=== PATIENT | male | born 1940 | race Caucasian/White ===

== ENCOUNTER 2019-04-30 19:24 | Inpatient (IN) | payer MEDICARE ==
[~2019-04-30] VITALS: Ht 172.7 cm; Wt 86.4 kg
[2019-04-30] MEDS ORDERED: IV NORMAL SALINE 1000 ML BAG IV ONE (19:45)
[2019-04-30 19:47] LABS: *BILIRUBIN,URIN 1+ (NEGATIVE); *BLOOD, URINE 2+ (NEGATIVE); *COLOR,URINE DARK YELLOW (YELLOW); *KETONES,URINE NEGATIVE (NEGATIVE); *UROBILINOGEN,URINE 0.2 E.U./dl (NORMAL); LEUKOCYTE ESTERASE ,URINE NEGATIVE (NEGATIVE); NITRITE, URINE NEGATIVE (NEGATIVE); PH,URINE 5.5 (5.0-8.0); UGLUCOSE NEGATIVE (NEGATIVE)
[2019-04-30 19:51] LABS: BASOPHILS # (AUTO) 0.1 K/uL (0.0-8.0); BASOPHILS % (AUTO) 0.6 % (0.0-2.0); EOSINOPHILS % (AUTO) 0.1 % (0.0-7.0); HEMATOCRIT 46.3 % (36.7-47.1); HEMOGLOBIN 15.5 g/dL (12.5-16.3); LYMPHOCYTES # (AUTO) 1.2 K/uL (20.0-40.0); LYMPHOCYTES % (AUTO) 6.4 % (20.5-51.5); MEAN CORPUSCULAR HEMOGLOBIN 30.9 uug (23.8-33.4); MEAN CORPUSCULAR HGB CONC 33 g/dL (32.5-36.3); MEAN CORPUSCULAR VOLUME 92.3 fL (73.0-96.2); MONOCYTES # (AUTO) 1.8 K/uL (2.0-10.0); MONOCYTES % (AUTO) 9.7 % (0.0-11.0); NEUTROPHILS # (AUTO) 15.8 K/uL (1.8-8.9); NEUTROPHILS % (AUTO) 83.2 % (38.5-71.5); PLATELET COUNT (AUTO) 177 K/uL (152-348); RED BLOOD CELL COUNT(AUTO) 5.02 MIL/uL (4.06-5.63)
[2019-04-30 19:59] LABS: CARBON DIOXIDE 26 mmol/L (21-32); CHLORIDE 101 mmol/L (98-107); CREATININE 1.5 mg/dL (0.6-1.3); GLUCOSE 209 mg/dL (74-106); POTASSIUM 3.4 mmol/L (3.5-5.1); UREA NITROGEN, BLOOD 24 mg/dL (7-18)
[2019-04-30 20:00] LABS: *CLARITY,URINE SLIGHTLY HAZY (CLEAR)
[2019-04-30 20:03] LABS: BACTERIA,URINE FEW /HPF (NONE SEEN); COARSE GRANULAR CASTS,URINE 0-3 /LPF; MUCUS,URINE MANY /LPF (0-FEW); SQUAMOUS EPITHELIAL CELL,UR FEW /HPF (NONE SEEN)
[2019-04-30 20:05] LABS: ALANINE AMINOTRANSFERASE 31 U/L (16-63); ALKALINE PHOSPHATASE 89 U/L (50-136); ASPARTATE AMINOTRANSFERASE 23 U/L (15-37); BILIRUBIN,DIRECT 0.2 mg/dL (0.0-0.2); BILIRUBIN,TOTAL 0.7 mg/dL (0.2-1.0); LIPASE 52 U/L (73-393); TOTAL PROTEIN, SERUM 7.2 g/dL (6.4-8.2)
[2019-04-30] MEDS ORDERED: ASPI-605 PO (20:16)
--- NOTE | 2019-04-30 20:18 | NUR ---
Jazmín ralph in [facility] - 04/30/19 at 2111 by [id number] PATIENT AND FAMILY UNAREA NAME AND DOSAGE OF MEDICATION TAKING AT HOME
--- NOTE | 2019-04-30 20:18 | NUR ---
PATIENT AND FAMILY UNABLE TO RECALL NAME AND DOSAGE OF MEDICATION TAKING AT HOME AT THIS TIME
[2019-04-30] MEDS ORDERED: DILTIAZEM HCL 25 MG IV ONE (20:23)
[2019-04-30] MEDS ORDERED: DILTIAZEM HCL 25 MG IV IV ONE (20:30)
--- NOTE | 2019-04-30 20:35 | NUR ---
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 PER FAMILY PATIENT IS NONCOMPLIANT WITH MEDICATION
--- NOTE | 2019-04-30 20:36 | NUR ---
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
[2019-04-30] MEDS ORDERED: ASPIRIN 81 MG TAB.CHEW ONE (21:01)
[2019-04-30] MEDS ORDERED: MAGNESIUM HYDROXIDE 30 ML LIQUID UDC PO PRN (21:15)
[2019-04-30] MEDS ORDERED: HYDROCODONE/APAP 5-325MG TABLET PO PRN (21:15)
[2019-04-30] MEDS ORDERED: MORPHINE SULFATE 2 MG/1 ML DISP.SYRIN IV PRN (21:15)
[2019-04-30] MEDS ORDERED: ASPIRIN 325 MG TABLET PO ONE (21:15)
[2019-04-30] MEDS ORDERED: ENOXAPARIN SODIUM 30 MG/0.3 ML DISP.SYRIN SQ SCH (21:15)
[2019-04-30] MEDS ORDERED: ACETAMINOPHEN 325 MG TABLET PO PRN (21:15)
[2019-04-30] MEDS ORDERED: ONDANSETRON 4 MG/2 ML VIAL IV PRN (21:15)
[2019-04-30] MEDS ORDERED: TEMAZEPAM 15 MG CAPSULE PO PRN (21:15)
[2019-04-30] MEDS ORDERED: CLONIDINE HCL 0.1 MG TABLET PO PRN (21:15)
--- NOTE | 2019-04-30 21:18 | NUR ---
TRANSFERED TO 3RD FLOOR TELE VIA [facility]
[2019-04-30 21:25] LABS: *AMPHETAMINE, URINE POSITIVE (NEGATIVE); *BARBITURATE, URINE NEGATIVE (NEGATIVE); *CANNABINOID, URINE NEGATIVE (NEGATIVE); *COCCAINE, URINE POSITIVE (NEGATIVE); *OPIATE, URINE NEGATIVE (NEGATIVE); *PHENCYCLIDINE SCREEN,URINE NEGATIVE (NEGATIVE)
[2019-04-30 21:33] VITALS: BP 92/42
[2019-04-30] MEDS ORDERED: ENOXAPARIN SODIUM 40 MG/0.4 ML DISP.SYRIN SQ SCH (22:00)
--- NOTE | 2019-04-30 22:00 | NUR ---
Received patient from ER. Dx: New onset A-fib/ generalized weakness. Patient is A/Ox4. No signs of acute distress noted. No complaints of pain or SOB. IV on the right AC is intact and patent. Patient walked to restroom with a weak, unsteady gait. Informed patient to not get up for now, provided urinal. Safety measures initiated. Bed is low and locked, call light within reach. Will continue to monitor.
[2019-04-30] MEDS: IV NS 1000 ML 1,000 ML IV PRN (22:05)
[2019-05-01] VITALS: BP 101/49
[2019-05-01 04:00] VITALS: BP 112/51
--- NOTE | 2019-05-01 06:07 | NUR ---
Patient slept well throughout night. No signs of acute distress noted. No complaints of pain or SOB. Patient stated that he still feels weak. heart rhythm in the TELE monitor converted to sinus rhythm around 5:18AM. Ordered EKG. IVF running on the right forearm. Safety measures given. Will endorse to next shift.
[2019-05-01 06:41] LABS: BASOPHILS # (AUTO) 0.1 K/uL (0.0-8.0); BASOPHILS % (AUTO) 0.4 % (0.0-2.0); EOSINOPHILS % (AUTO) 0.1 % (0.0-7.0); HEMATOCRIT 41.3 % (36.7-47.1); HEMOGLOBIN 13.7 g/dL (12.5-16.3); LYMPHOCYTES # (AUTO) 1.6 K/uL (20.0-40.0); LYMPHOCYTES % (AUTO) 9.9 % (20.5-51.5); MEAN CORPUSCULAR HGB CONC 33 g/dL (32.5-36.3); MEAN CORPUSCULAR VOLUME 93.2 fL (73.0-96.2); MONOCYTES # (AUTO) 1.7 K/uL (2.0-10.0); NEUTROPHILS # (AUTO) 12.5 K/uL (1.8-8.9); NEUTROPHILS % (AUTO) 78.6 % (38.5-71.5); PLATELET COUNT (AUTO) 153 K/uL (152-348); RED BLOOD CELL COUNT(AUTO) 4.43 MIL/uL (4.06-5.63); WHITE BLOOD COUNT (AUTO) 15.9 K/uL (3.6-10.2)
[2019-05-01 07:00] LABS: ALANINE AMINOTRANSFERASE 27 U/L (16-63); ALKALINE PHOSPHATASE 76 U/L (50-136); ASPARTATE AMINOTRANSFERASE 32 U/L (15-37); BILIRUBIN,TOTAL 0.5 mg/dL (0.2-1.0); CARBON DIOXIDE 27 mmol/L (21-32); CHLORIDE 107 mmol/L (98-107); CHOLESTEROL 110 mg/dL (<200); CREATININE 1.2 mg/dL (0.6-1.3); GLUCOSE 142 mg/dL (74-106); HDL CHOLESTEROL 33 mg/dL (40-60); MAGNESIUM 1.8 mg/dL (1.8-2.4); PHOSPHOROUS 2.6 mg/dL (2.5-4.9); POTASSIUM 3.6 mmol/L (3.5-5.1); TOTAL PROTEIN, SERUM 6.2 g/dL (6.4-8.2); TRIGLYCERIDES 69 MG/DL (30-150); UREA NITROGEN, BLOOD 24 mg/dL (7-18)
[2019-05-01 07:11] LABS: THYROID STIMULATING HORMONE 0.621 mIU/mL (0.358-3.740)
[2019-05-01] MEDS: NICOTINE 14 MG/24HR PATCH TD SCH (08:01)
[2019-05-01] MEDS ORDERED: ASPIRIN EC 81 MG TABLET.DR PO SCH (09:00)
[2019-05-01] MEDS ORDERED: NICOTINE 14 MG/24HR PATCH TD SCH (09:00)
[2019-05-01 11:27] VITALS: BP 105/57
[2019-05-01] MEDS ORDERED: DEXTROSE 50% 50 ML DISP.SYRIN IV PRN (11:45)
[2019-05-01] MEDS: IV NS 1000 ML 1,000 ML IV PRN (12:51)
[2019-05-01 15:33] VITALS: BP 108/62
[2019-05-01] MEDS: BLOOD SUGAR DIAGNOSTIC 1 EACH STRIP VI SCH ×2 (16:03→20:44)
[2019-05-01] MEDS: INSULIN REGULAR, HUMAN 300 UNIT/3 ML VIAL SQ PRN ×2 (16:05→20:50)
[2019-05-01] MEDS ORDERED: RIVAROXABAN 10 MG TABLET PO SCH (18:00)
--- NOTE | 2019-05-01 20:00 | NUR ---
RECEIVED PATIENT AWAKE IN BED WITH VISITOR AT BEDSIDE. PATIENT IS A/O X4. DENIES ANY PAIN OR DISCOMFORT. NO RESP. DISTRESS NOTED. ON TELE SR. VS WNL. IVF INFUSING WELL TO RIGHT AC #20 GAUGE. CALL LIGHT IN REACH. ALL NEEDS ATTENDED. WILL CONTINUE TO MONITOR AND ASSESS.
[2019-05-01 20:14] VITALS: BP 124/60
[2019-05-01] MEDS: METOPROLOL TARTRATE 25 MG TABLET PO SCH (20:36)
[2019-05-02] VITALS: BP 115/65
[2019-05-02] MEDS: IV NS 1000 ML 1,000 ML IV PRN (03:01)
[2019-05-02 04:00] VITALS: BP 147/82
[2019-05-02] MEDS: BLOOD SUGAR DIAGNOSTIC 1 EACH STRIP VI SCH ×2 (06:33→10:55)
--- NOTE | 2019-05-02 06:44 | NUR ---
PATIENT ASLEEP IN BED. ON TELE SR. SLEPT WELL. CALL LIGHT IN REACH. ALL NEEDS ATTENDED. WILL CONTINUE TO MONITOR AND ASSESS.
[2019-05-02 06:54] LABS: CARBON DIOXIDE 28 mmol/L (21-32); CHLORIDE 107 mmol/L (98-107); CREATININE 1.1 mg/dL (0.6-1.3); GLUCOSE 132 mg/dL (74-106); POTASSIUM 3.3 mmol/L (3.5-5.1); UREA NITROGEN, BLOOD 19 mg/dL (7-18)
[2019-05-02 07:03] LABS: BASOPHILS # (AUTO) 0.1 K/uL (0.0-8.0); BASOPHILS % (AUTO) 0.4 % (0.0-2.0); EOSINOPHILS # (AUTO) 0.1 K/uL (0.0-0.7); EOSINOPHILS % (AUTO) 0.5 % (0.0-7.0); HEMATOCRIT 40.1 % (36.7-47.1); HEMOGLOBIN 13.2 g/dL (12.5-16.3); LYMPHOCYTES # (AUTO) 1.9 K/uL (20.0-40.0); LYMPHOCYTES % (AUTO) 11.8 % (20.5-51.5); MEAN CORPUSCULAR HEMOGLOBIN 30.6 uug (23.8-33.4); MEAN CORPUSCULAR HGB CONC 33 g/dL (32.5-36.3); MEAN CORPUSCULAR VOLUME 92.8 fL (73.0-96.2); MONOCYTES # (AUTO) 2.4 K/uL (2.0-10.0); MONOCYTES % (AUTO) 14.5 % (0.0-11.0); NEUTROPHILS # (AUTO) 11.9 K/uL (1.8-8.9); NEUTROPHILS % (AUTO) 72.8 % (38.5-71.5); PLATELET COUNT (AUTO) 159 K/uL (152-348); RED BLOOD CELL COUNT(AUTO) 4.32 MIL/uL (4.06-5.63); WHITE BLOOD COUNT (AUTO) 16.4 K/uL (3.6-10.2)
[2019-05-02] MEDS ORDERED: POTASSIUM CHLORIDE 20 MEQ TAB.PRT.SR PO ONE (07:30)
[2019-05-02] MEDS: NICOTINE 14 MG/24HR PATCH TD SCH (08:02)
[2019-05-02] MEDS: METOPROLOL TARTRATE 25 MG TABLET PO SCH (08:02)
[2019-05-02 11:00] VITALS: BP 137/75
[2019-05-02] MEDS: INSULIN REGULAR, HUMAN 300 UNIT/3 ML VIAL SQ PRN (11:13)
--- NOTE | 2019-05-02 12:44 | NUR ---
Clinical pharmacy note-Vancomycin dosing per pharmacy Subjective: To start Vancomycin dosing on this patient for cellulitis Objective: BUN 19 Scr 1.1 WBC 16.4 Temp 98.6 Ht 172.72cm Wt 86.409kg Assessment/Plan: Will start Vancomycin 1250mg IV every 17hrs(first dose today at 1400) and draw trough by 4th dose(not ordered yet) for unskfie5h trough around 16.47. Will monitor daily.
[2019-05-02 13:00] VITALS: BP 142/72
--- NOTE | 2019-05-02 13:00 | NUR ---
PT HAVE 2 AND 1/2 SECONDS PAUSE ,PT IS ASYMPTOMATIC VS ARE BP 142/72 HR 69 RESP 20 .NO C/O CHEST PAIN MD MADE AWARE AND NOTIFIED THE CHIEF LIFESTYLE OFFICER
[2019-05-02 13:18] VITALS: BP 138/70
[2019-05-02] MEDS ORDERED: IV NORMAL SALINE 500 ML IV ONE (13:30)
[2019-05-02] MEDS ORDERED: VANCOMYCIN IV 1,250 MG in IV DEXTROSE 5% 500 ML IV SCH (14:00)
[2019-05-02] MEDS ORDERED: AMIODARONE HCL 200 MG TABLET PO SCH (14:45)
--- NOTE | 2019-05-02 15:58 | NUR ---
PT WAS YELLING AND GETTING ANGARY REMOVED HIS HEART MONITOR AND IV .PT SAID HE WANTS TO GO HOME AGAINST MEDICAL ADVISE , AND CHARGE NURSE AND NURSING CLAM DIGGER MADE AWARE, ALL THE CONTRAINDICATIONS AND RISKS AND SIDE EFFECT EXPLAIN TO THE PT ,PT REFUSED TO TAKE THE PAPER ,PT LEFT THE FACILITY WITH HIS DAUGHTER AND IN PROPER CLOTHING ,PT IS AXOX4
[2019-05-03] MEDS ORDERED: RIVA10TA PO (12:08)
[2019-05-03] MEDS ORDERED: AMIO200T4 PO (12:08)
== END 2019-05-02 16:00 | disposition left against medical advice (07) | DRG 280 ==
LOC: ER 19:25 → TELE3 21:05
PROVIDERS: ADMIT Nurse Practitioner Acute Care; ATTEND Nurse Practitioner Acute Care
PROC: 3E033RZ Introduction of Antiarrhythmic into Peripheral Vein, Percutaneous Approach (ICD-10-PCS; principal; 2019-04-30)
DX: I48.0 Paroxysmal atrial fibrillation (principal); N17.0 Acute kidney failure with tubular necrosis; I21.A1 Myocardial infarction type 2; G92 Toxic encephalopathy; E44.1 Mild protein-calorie malnutrition; L03.115 Cellulitis of right lower limb; G93.40 Encephalopathy, unspecified; E87.6 Hypokalemia; F15.10 Other stimulant abuse, uncomplicated; F14.10 Cocaine abuse, uncomplicated; Z86.73 Personal history of transient ischemic attack (TIA), and cerebral infarction without residual deficits; F17.210 Nicotine dependence, cigarettes, uncomplicated; E11.65 Type 2 diabetes mellitus with hyperglycemia; Z91.14 Patient's other noncompliance with medication regimen; F15.188 Other stimulant abuse with other stimulant-induced disorder; E78.5 Hyperlipidemia, unspecified; R53.1 Weakness
CPT/HCPCS: 36415; 70030-TC; 71045; 80307; 83690; 83735; 84100; 84443; 85025; 87086; 93005; 93307; 97110; 97116; 97530; A4663; G0378; J1650; J1815; J3370; J3490; J7030; J7040; J7060